=== PATIENT | female | born 1945 | race Caucasian/White ===

== ENCOUNTER 2016-07-30 07:04 | Emergency (ER) | payer MEDICARE ==
[2016-07-30 08:10] LABS: HEMOGLOBIN 12.9 gm/dl (12.3-15.3); RED BLOOD COUNT 4.4 M/UL (4.00-5.10); WHITE BLOOD COUNT 13.1 K/UL (4.5-11.0)
== END 2016-07-30 11:38 | disposition home or self-care (01) ==
LOC: ER1 07:04
PROVIDERS: Specialist/Technologist Athletic Trainer
DX: N39.0 Urinary tract infection, site not specified (principal); K59.00 Constipation, unspecified; E11.65 Type 2 diabetes mellitus with hyperglycemia; I10 Essential (primary) hypertension; F17.290 Nicotine dependence, other tobacco product, uncomplicated; Z88.1 Allergy status to other antibiotic agents; Z88.5 Allergy status to narcotic agent; Z91.040 Latex allergy status
CPT/HCPCS: 36415; 80053; 81001; 82550; 82553; 83605; 83690; 83874; 83880; 84484; 85025; 85379; 87077; 87086; 87186; 93005; 96374; 96375; 99284; J1885; J2405; J7050; Q9962